=== PATIENT | male | born 2005 | race Caucasian/White ===

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

== ENCOUNTER 2024-08-05 22:09 | Inpatient (IN) | payer MEDICAID ==
[~2024-08-05] VITALS: Ht 182.9 cm; Wt 82.0 kg
[~2024-08-05 22:09] MED LIST: ATOM10CA4 PO; FLUO-418 PO; HALO2 PO; MELA5TAB40 PO; NALT50TA6 PO; OMEG-135 PO; TRIH5TAB3 PO
[2024-08-05 23:32] LABS: COVID AG,FIA SOURCE NASAL SWAB
[2024-08-05 23:36] LABS: ANION GAP 6 mmol/L (8-16); CARBON DIOXIDE 32 mmol/L (22-29); CHLORIDE 101 mmol/L (98-107); CREATININE 1.07 mg/dL (0.60-1.30); GLOMERULAR FILTR. RATE CALC > 60 mL/min (>60); GLUCOSE,RANDOM 84 mg/dL (70-110); POTASSIUM 4.1 mmol/L (3.5-5.1); SODIUM SERUM 139 mmol/L (136-145); UREA NITROGEN, BLOOD 12 mg/dL (7-18)
[2024-08-05 23:45] LABS: BASOPHILS % (AUTO) 0.9 % (0.0-2.0); EOSINOPHILS % (AUTO) 1.1 % (1.0-6.0); HEMATOCRIT 47.8 % (41-53); HEMOGLOBIN 16.3 g/dL (13.5-17.5); LYMPHOCYTES # (AUTO) 2.3 K/uL (1.0-4.8); LYMPHOCYTES % (AUTO) 35.7 % (22.0-44.0); MEAN CORPUSCULAR HEMOGLOBIN 30.2 pg (26.0-34.0); MEAN CORPUSCULAR HGB CONC 34.1 G/dL (31.0-37.0); MEAN CORPUSCULAR VOLUME 89 fL (80-100); MONOCYTES # (AUTO) 0.5 K/uL (0.1-1.0); MONOCYTES % (AUTO) 7.8 % (2.0-9.0); NEUTROPHILS # (AUTO) 3.5 K/uL (1.8-7.7); NEUTROPHILS % (AUTO) 54.5 % (40.0-70.0); PLATELET COUNT (AUTO) 228 K/uL (150-450); RED CELL DISTRIBUTION WIDTH 13.2 % (11.5-14.5); WHITE BLOOD COUNT (AUTO) 6.3 K/uL (4.5-11.0)
[2024-08-06 00:08] LABS: ALCOHOL, BLOOD (SERUM) < 3 mg/dL (0-10)
[2024-08-06 00:11] LABS: SARS-COV2 (COVID) ANTIGEN,FIA Negative (Negative)
[2024-08-06] MEDS: ZOLPIDEM TARTRATE 5 MG TABLET PO ONE (02:36)
[2024-08-06 02:59] VITALS: O2SAT 100
[2024-08-06] MEDS ORDERED: HALOPERIDOL 5 MG TABLET PO PRN ×2 (03:15→23:00)
[2024-08-06] MEDS ORDERED: LORazepam 2 MG TABLET PO PRN (03:15)
[2024-08-06 05:49] VITALS: BP 134/59; PULSE 69; RESP 18; TEMP 96.5; O2SAT 98
[2024-08-06] MEDS: INFLUENZA VIRUS VACCINE TVS (6MO+) 2024-25/PF 45 MCG/0.5 ML SYRINGE IM. ONE (05:59)
[2024-08-06] MEDS ORDERED: GuaiFENesin/D-METHORPHAN [SUGAR-FREE] 200-20MG/10 ML SYRUP UDCUP PO PRN (06:30)
[2024-08-06] MEDS ORDERED: TUBERCULIN, PURIFIED PROTEIN DERIVATIVE 5 TU/0.1 ML SYRINGE ID ONE (06:30)
[2024-08-06] MEDS ORDERED: MAG HYDROX/ALUMINUM HYD/SIMETH ES 30 ML SUSPENSION UDCUP PO PRN (06:30)
[2024-08-06] MEDS ORDERED: ACETAMINOPHEN 325 MG TABLET PO PRN (06:30)
[2024-08-06] MEDS ORDERED: LOPERAMIDE HCL 2 MG CAPSULE PO PRN (06:30)
[2024-08-06] MEDS: CYANOCOBALAMIN 1,000 MCG/ML VIAL IM ONE (06:30)
[2024-08-06] MEDS ORDERED: HydrOXYzine PAMOATE 50 MG CAPSULE PO PRN (06:30)
[2024-08-06] MEDS ORDERED: MAGNESIUM HYDROXIDE SUSPENSION 30 ML UDCUP PO PRN (06:30)
[2024-08-06] MEDS ORDERED: PROMETHAZINE HCL 25 MG TABLET PO PRN (06:30)
[2024-08-06 08:50] VITALS: BP 139/64; PULSE 62; RESP 16; TEMP 97.8; O2SAT 99
[2024-08-06] MEDS ORDERED: HALOPERIDOL 1 MG TABLET PO SCH (09:00)
[2024-08-06] MEDS: OMEGA-3/DHA/EPA/FISH OIL 1,000 MG CAPSULE PO SCH (09:12)
[2024-08-06] MEDS: MULTIVITAMINS WITH MINERALS, THERAPEUTIC TABLET PO SCH (09:12)
[2024-08-06] MEDS: FOLIC ACID 1 MG TABLET PO SCH (09:13)
[2024-08-06] MEDS: TRIHEXYPHENIDYL HCL 5 MG TABLET PO SCH (09:13)
[2024-08-06] MEDS: THIAMINE 100 MG TABLET PO SCH (09:13)
[2024-08-06] MEDS: NALTREXONE HCL 50 MG TABLET PO SCH (09:13)
[2024-08-06] MEDS: FLUoxetine HCL 20 MG CAPSULE PO SCH (09:13)
[2024-08-06] MEDS: ATOMOXETINE HCL 18 MG CAPSULE PO SCH (12:48)
[2024-08-06] MEDS: HALOPERIDOL 1 MG TABLET PO SCH (12:48)
[2024-08-06] MEDS: MELATONIN 5 MG TABLET PO SCH (21:00)
[2024-08-06 21:31] VITALS: BP 140/82; PULSE 80; RESP 16; TEMP 98.3; O2SAT 99
[2024-08-06] MEDS: ZOLPIDEM TARTRATE 10 MG TABLET PO PRN (21:51)
[2024-08-07] MEDS: HALOPERIDOL 1 MG TABLET PO SCH (08:45)
[2024-08-07] MEDS: TRIHEXYPHENIDYL HCL 5 MG TABLET PO SCH (08:45)
[2024-08-07] MEDS: FLUoxetine HCL 20 MG CAPSULE PO SCH (08:45)
[2024-08-07 09:32] VITALS: BP 118/55; PULSE 61; RESP 16; TEMP 97.5; O2SAT 96
[2024-08-07 09:32] LABS: CHOL/HDL RATIO 2.7 (4.2-7.3); FREE T4 (FREE THYROXINE) 0.84 ng/dL (0.76-1.46); THYROID STIMULATING HORMONE 0.81 uIU/mL (0.36-3.74)
[2024-08-07] MEDS ORDERED: NALT50TA33 PO (15:57)
[2024-08-07] MEDS ORDERED: ATOM25CA8 PO (15:57)
[2024-08-07] MEDS ORDERED: OMEG100033 PO (15:57)
[2024-08-07] MEDS ORDERED: PRAZ1 PO (15:57)
[2024-08-07] MEDS: PRAZOSIN HCL 1 MG CAPSULE PO SCH (20:12)
[2024-08-07] MEDS: HALOPERIDOL 10 MG TABLET PO SCH (20:12)
[2024-08-07 20:29] VITALS: BP 124/66; PULSE 60; RESP 16; TEMP 98; O2SAT 97
[2024-08-08] MEDS: ATOMOXETINE HCL 25 MG CAPSULE PO SCH (08:33)
[2024-08-08 08:34] VITALS: BP 116/59; PULSE 85; RESP 12; TEMP 98.3; O2SAT 97
== END 2024-08-08 12:10 | disposition home or self-care (01) | DRG 750 ==
LOC: EMS 22:09 → B2S 08-06 02:51
PROVIDERS: ADMIT Psychiatry & Neurology Psychiatry; ATTEND Psychiatry & Neurology Psychiatry
PROC: GZHZZZZ Group Psychotherapy (ICD-10-PCS; principal; 2024-08-06)
PROC: GZ51ZZZ Individual Psychotherapy, Behavioral (ICD-10-PCS; 2024-08-06)
DX: F25.9 Schizoaffective disorder, unspecified (principal); F33.2 Major depressive disorder, recurrent severe without psychotic features; R45.851 Suicidal ideations; Z20.822 Contact with and (suspected) exposure to COVID-19; F41.9 Anxiety disorder, unspecified; F43.10 Post-traumatic stress disorder, unspecified; F90.9 Attention-deficit hyperactivity disorder, unspecified type
CPT/HCPCS: 80048; 80061; 83036; 84439; 84443; 85025; 86592; 99285; G0480